=== PATIENT | male | born 1955 | race Hispanic/Latino ===

== ENCOUNTER → 2023-07-07 | Outpatient (CLI) | payer MEDICARE ==
[~2023-07-07] MED LIST: GADOTERATE MEGLUMINE 10 MMOL/20 ML VIAL IV ONE
== END | disposition home or self-care (01) ==
LOC: RAH 09:57
PROVIDERS: ATTEND Surgery Surgical Oncology
DX: C78.7 Secondary malignant neoplasm of liver and intrahepatic bile duct (principal); R16.0 Hepatomegaly, not elsewhere classified
CPT/HCPCS: 74183; A9575